=== PATIENT | male | born 1970 | race Caucasian/White ===

== ENCOUNTER 2017-01-22 16:30 | Emergency (ER) | payer OTHER ==
[~2017-01-22] VITALS: Ht 180.3 cm; Wt 90.7 kg
[~2017-01-22 16:30] MED LIST: ALEVE220 MG PO; ANAPROX DS550 MG PO; ATARAX25 MG PO; CLEOCIN HCL150 MG PO; CYCLOBENZAPRINE10 MG PO; CYCLOBENZAPRINE5 M3 PO; FLEXERIL5 MG PO; HYDROCODONE BIT1 T11 PO; IBU800 MG PO; MOTRIN800 MG PO; Motrin,Rufen800 MG PO; NAPROSYN500 MG PO; NKHM; NORCO 325 MG-51 TAB PO; NORFLEX100 MG PO; PEN-V500 MG PO; PEPCID20 MG PO; PERIDEX 480 ML480 ML PO; PREDNICOT10 MG PO; PREDNISONE50 MG PO; SILVADENE1% TP; TRAMADOL HCL50 MG PO; ULTRAM50 MG PO; ZITHROMAX Z PA250 MG PO
[2017-01-22] MEDS ORDERED: PREDNISONE10 MG PO (18:33)
[2017-01-22] MEDS ORDERED: ROBAXIN-750750 MG PO (18:33)
== END 2017-01-22 22:01 | disposition home or self-care (01) ==
LOC: ED 16:30
DX: S33.5XXA Sprain of ligaments of lumbar spine, initial encounter (principal); X50.9XXA Other and unspecified overexertion or strenuous movements or postures, initial encounter; Y93.89 Activity, other specified; Y92.9 Unspecified place or not applicable; Y99.9 Unspecified external cause status

== ENCOUNTER 2017-01-25 20:19 | Emergency (ER) | payer OTHER ==
[~2017-01-25] VITALS: Ht 180.3 cm; Wt 90.7 kg
[~2017-01-25 20:19] MED LIST changes: +PREDNISONE10 MG PO; +ROBAXIN-750750 MG PO
== END 2017-01-25 20:48 | disposition home or self-care (01) ==
LOC: ED 20:19
DX: S39.013A Strain of muscle, fascia and tendon of pelvis, initial encounter (principal); S39.012A Strain of muscle, fascia and tendon of lower back, initial encounter; R03.0 Elevated blood-pressure reading, without diagnosis of hypertension; X50.9XXA Other and unspecified overexertion or strenuous movements or postures, initial encounter; Y93.89 Activity, other specified; Y92.9 Unspecified place or not applicable; Y99.9 Unspecified external cause status

== ENCOUNTER 2017-12-12 09:15 | Emergency (ER) | payer OTHER ==
[~2017-12-12] VITALS: Ht 180.3 cm; Wt 86.2 kg
[2017-12-12] MEDS ORDERED: CHLORZOXAZONE500 M2 PO (09:21)
[2017-12-12] MEDS ORDERED: NAPROSYN500 MG PO (09:21)
== END 2017-12-12 11:01 | disposition home or self-care (01) ==
LOC: ED 09:15
DX: M54.42 Lumbago with sciatica, left side (principal); M54.41 Lumbago with sciatica, right side; R03.0 Elevated blood-pressure reading, without diagnosis of hypertension; F10.10 Alcohol abuse, uncomplicated; Z79.899 Other long term (current) drug therapy

== ENCOUNTER → 2019-04-11 | Outpatient (CLI) | payer OTHER ==
[~2019-04-11] MED LIST changes: +CHLORZOXAZONE500 M2 PO
--- NOTE | ~2019-04-11 | PF ---
[place], [place] PULMONARY FUNCTION TEST NAME: JEFRY GLORIA UNIT #: [id number] ROOM: DOCTOR: TIFFANIE HAIR MD,ANASTASIA BIRTHDATE: [birth year] DOS: 04/11/2019 ORDERED BY: Elliot Loving. HISTORY: The patient recorded as 48-year-old male, height 71 inches, weight 198 pounds, BMI of 27.6. Symptoms reported for shortness of breath with exertion, nonproductive cough and wheezing. Tobacco use was known as 20 years of cigars use, which has been discontinued one year ago. SPIROMETRY: The FVC 4.67 liters, 89% predicted value. The FEV1 3.62 liters as 87% predicted value. Ratio of FEV1/FVC 78% post-bronchodilators. There were no significant changes noted for this patient. Flow volume loop was normal. LUNG VOLUME: Thoracic gas volume recorded 77%, residual volume 92%, total lung capacity 90%. Lung diffusion were noted normal. The patient's airway resistance, passive conductance noted as abnormal, partial improvement post-bronchodilator. FINAL IMPRESSION: Possible consideration of mild obstructive lung disease can be excluded. Clinical correlation to be advised. ANASTASIA MORENO MD CM:PFREPORT:PULMONARY FUNCTION TEST [id number] ANASTASIA HAIR MD
== END | disposition home or self-care (01) ==
LOC: RAD 08:07
DX: M47.816 Spondylosis without myelopathy or radiculopathy, lumbar region (principal); M54.42 Lumbago with sciatica, left side; R06.2 Wheezing

== ENCOUNTER 2020-03-12 11:04 | Inpatient (IN) | payer OTHER ==
[~2020-03-12] VITALS: Ht 180.3 cm; Wt 88.5 kg
[2020-03-12 11:09] VITALS: BP 140/94
[2020-03-12 11:45] LABS: BASO # 0.1 10*3/uL (0.0-0.1); BASO % 0.2 % (0.0-1.0); EOS % 0.1 % (1.0-4.0); HEMATOCRIT 44.8 % (42.0-52.0); LYMPH # 1.4 10*3/uL (1.3-4.4); LYMPH % 6.9 % (27.0-41.0); MEAN CELL VOLUME 87.8 fl (80.0-94.0); MEAN CORPUSCULAR HGB 28.6 pg (27.0-31.0); MEAN CORPUSCULAR HGB CONC 32.6 g/dl (33.0-37.0); MEAN PLATELET VOLUME 9.3 fl (9.6-12.3); MONO # 1.5 10*3/uL (0.1-1.0); MONO % 7.1 % (3.0-9.0); NEUT # 17.5 10*3/uL (2.3-7.9); NEUT % 85.2 % (47.0-73.0); PLATELET COUNT AUTOMATED 246 10*3/uL (130-400); RED CELL DISTRI WIDTH 13.2 % (0-14.5); WHITE BLOOD COUNT 20.6 10*3/uL (4.8-10.8)
[2020-03-12 11:59] LABS: ALBUMIN 3.8 gm/dl (3.1-4.5); ALKALINE PHOSPHATASE 75 U/L (45-117); BUN 10 mg/dl (7-24); CHLORIDE 105 mmol/L (98-107); CREATININE 1.07 mg/dL (0.70-1.30); LIPASE 52 U/L (73-393); POTASSIUM 3.8 mmol/L (3.5-5.1); SGOT/AST 17 IU/L (3-35); SGPT/ALT 18 U/L (12-78); SODIUM 138 mmol/L (136-145); TOTAL PROTEIN 7.5 gm/dL (6.4-8.2)
--- NOTE | 2020-03-12 12:44 | NUR ---
pt unable to urinate at this time.
[2020-03-12 13:28] LABS: CLARITY CLEAR (CLEAR); COLOR YELLOW (YELLOW)
[2020-03-12 13:30] LABS: BACTERIA 1+; BILIRUBIN NEGATIVE; BLOOD NEGATIVE (NEGATIVE); GLUCOSE NEGATIVE; KETONE TRACE; LEUKO ESTERASE TRACE (NEGATIVE); MUCOUS 2+; NITRITE NEGATIVE (NEGATIVE); PH 6.5 (4.5-8.0); RBC 0-2 rbc/hpf (0-2)
--- NOTE | 2020-03-12 14:46 | NUR ---
PT RESTING IN BED. NO SIGNS OF ACUTE DISTRESS AT THIS TIME.
--- NOTE | 2020-03-12 15:10 | NUR ---
DR. TENORIO ADVISED ADMISSION. PT STATES THAT HE HAS SOME THINGS THAT HE NEEDS TO TAKE CARE OF FIRST AND THAT HE WILL COME BACK. PT WILL SIGN OUT AMA.
--- NOTE | 2020-03-12 18:54 | NUR ---
GAVE PT. DINNER BOX.
[2020-03-12 18:55] VITALS: BP 144/90
--- NOTE | 2020-03-12 19:15 | NUR ---
PATIENT REQUESTING TO LEAVE CLOTHING ON AT THIS TIME DUE TO BEING COLD. OFFERED PATIENT BLANKET AND WARM GOWN BUT STILL REQUESTED TO LEAVE CLOTHING ON UNTIL HE WENT TO THE FLOOR.
[2020-03-12 20:01] VITALS: BP 132/88
--- NOTE | 2020-03-12 20:01 | NUR ---
A 49, admitted to 5E, under the services of JOSE J Oneil DO with a diagnosis of DIVERTICULITIS. Chief complaint is ABDOMINAL PAIN. Patient arrived via bed from ER. Monitor applied. Initial assessment completed. Vital signs taken and recorded. JOSE J ONEIL DO notified of admission to the unit. Orders received. See assessment for past medical history, medications and allergies. Patient and/or family oriented to unit. [address] visitation policy reviewed. Clothing/patient valuable form completed. CAROLINE MARIA
--- NOTE | 2020-03-12 20:28 | NUR ---
PT MEDICATED WITH PRN NORCO FOR C/O PAIN RATED A 5/10. WILL MONITOR FOR EFFECTIVENESS.
--- NOTE | 2020-03-12 21:15 | NUR ---
PT REPORTS RELIEF OF PAIN AT THIS TIME. PRN NORCO EFFECTIVE.
[2020-03-13] VITALS: BP 128/91
[2020-03-13 06:44] LABS: BASO # 0.1 10*3/uL (0.0-0.1); BASO % 0.4 % (0.0-1.0); EOS # 0.1 10*3/uL (0.0-0.4); EOS % 0.4 % (1.0-4.0); HEMATOCRIT 40.6 % (42.0-52.0); LYMPH % 10.1 % (27.0-41.0); MEAN CELL VOLUME 88.5 fl (80.0-94.0); MEAN CORPUSCULAR HGB 29.2 pg (27.0-31.0); MEAN PLATELET VOLUME 9.9 fl (9.6-12.3); MONO # 1.3 10*3/uL (0.1-1.0); MONO % 6.8 % (3.0-9.0); NEUT # 15.7 10*3/uL (2.3-7.9); NEUT % 81.6 % (47.0-73.0); PLATELET COUNT AUTOMATED 202 10*3/uL (130-400); RED BLOOD COUNT 4.59 10*6/uL (4.50-5.90); RED CELL DISTRI WIDTH 13.3 % (0-14.5); WHITE BLOOD COUNT 19.3 10*3/uL (4.8-10.8)
[2020-03-13 07:25] LABS: CHLORIDE 109 mmol/L (98-107); POTASSIUM 3.8 mmol/L (3.5-5.1); SODIUM 137 mmol/L (136-145)
[2020-03-13 07:39] LABS: ACT PARTIAL THROMBO TIME 30.2 SECONDS (20.0-32.1); ALBUMIN 3.2 gm/dl (3.1-4.5); ALKALINE PHOSPHATASE 74 U/L (45-117); BUN 7 mg/dl (7-24); CHOLESTEROL 138 mg/dL (<200); CREATININE 0.89 mg/dL (0.70-1.30); FREE T4 1.19 ng/dl (0.76-1.46); HDL CHOLESTEROL 35 mg/dl (40-60); INTERNATIONAL NORM RATIO 1.1 (2.0-3.5); LDL CHOLESTEROL 90 mg/dL (9-159); SGOT/AST 14 IU/L (3-35); SGPT/ALT 15 U/L (12-78); THYROID STIM HORMONE (HS) 0.657 uIU/ml (0.358-4.75); TOTAL PROTEIN 6.9 gm/dL (6.4-8.2); TRIGLYCERIDES 65 mg/dl (<150); VLDL CHOLESTEROL 13 mg/dL (6-40)
[2020-03-13 08:00] VITALS: BP 139/88
[2020-03-13 08:24] LABS: VITAMIN D, 25-HYDROXY 31.6 ng/mL (30-100)
--- NOTE | 2020-03-13 08:30 | NUR ---
Tourist Cabin Keeper in to talk to patient. Patient states lives at home with his and 2 children. There are 0 steps in the home. Physician: Elliot Loving Pharmacy: [facility] Home health services: none Patient's level of ADLs: independent Patient has working utilities: yes DME: none Follow-up physician's appointment after d/c: will be made by the hospitalist nurse director upon discharge Does patient want to access PORTAL?: no Discharge plan discussed with patient. He lives at home with his family. He is independent in his ADLs and ambulation. He states he came to the ER yesterday morning about 11am and they wanted to admit him then but he had to go home and tend to his multiple fish tanks. He came back to the ER because that is what the ER doctor wanted him to do. He states he wants to be discharged today because he is not able to miss another day of work. 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 He said he can stay today because he has already missed work today. He states he feels much better. His stomach is sore in the middle when someone pushes on it. Discussed home health care services and he declines. CM will continue to follow for any discharge planning needs. When medically stable he will be discharged to home. He states he drove himself home as he drove himself here. GINA LAKHANI
[2020-03-13 12:00] VITALS: BP 141/95
[2020-03-13 16:00] VITALS: BP 144/90
--- NOTE | 2020-03-13 18:15 | NUR ---
TYLENOL 650 MG GIVEN FOR C/O PAIN,09/05.
--- NOTE | 2020-03-13 19:32 | NUR ---
24 HR chart check completed.
[2020-03-13 20:00] VITALS: BP 137/85
--- NOTE | 2020-03-13 21:42 | NUR ---
C/O HEADACHE AND WANTING TO GO TO SLEEP. NORCO GIVEN PER ORDER FOR PAIN RATED "6" SEE MAR. RESTORIL GIVEN PER ORDER FOR INSOMNIA.
--- NOTE | 2020-03-13 22:40 | NUR ---
NORCO EFFECTIVE FOR PAIN PER PATIENT. RESTORIL HELPING, PATIENT DROWSY.
[2020-03-14] VITALS: BP 108/72
--- NOTE | 2020-03-14 05:40 | NUR ---
PATIENT SLEEPING NO ACUTE DISTRESS NOTED.
[2020-03-14 06:00] LABS: BASO # 0.1 10*3/uL (0.0-0.1); BASO % 0.5 % (0.0-1.0); EOS # 0.3 10*3/uL (0.0-0.4); EOS % 2.2 % (1.0-4.0); HEMATOCRIT 41.4 % (42.0-52.0); LYMPH # 1.6 10*3/uL (1.3-4.4); LYMPH % 14.5 % (27.0-41.0); MEAN CELL VOLUME 88.1 fl (80.0-94.0); MEAN CORPUSCULAR HGB 29.4 pg (27.0-31.0); MEAN CORPUSCULAR HGB CONC 33.3 g/dl (33.0-37.0); MEAN PLATELET VOLUME 9.7 fl (9.6-12.3); MONO # 0.9 10*3/uL (0.1-1.0); MONO % 7.9 % (3.0-9.0); NEUT # 8.4 10*3/uL (2.3-7.9); NEUT % 74.5 % (47.0-73.0); PLATELET COUNT AUTOMATED 229 10*3/uL (130-400); RED CELL DISTRI WIDTH 13.2 % (0-14.5); WHITE BLOOD COUNT 11.3 10*3/uL (4.8-10.8)
[2020-03-14 06:11] LABS: BUN 9 mg/dl (7-24); CHLORIDE 106 mmol/L (98-107); CREATININE 0.95 mg/dL (0.70-1.30); POTASSIUM 3.6 mmol/L (3.5-5.1); SODIUM 138 mmol/L (136-145)
--- NOTE | 2020-03-14 08:15 | NUR ---
Shift chart check completed.
[2020-03-14] MEDS ORDERED: FLAGYL500 MG PO (08:46)
[2020-03-14] MEDS ORDERED: CIPRO500 MG PO (08:46)
--- NOTE | 2020-03-14 09:21 | NUR ---
Discharge instructions reviewed with patient/family. Patient receptive and verbalizes understanding. Follow-up care arranged. Written instructions given to patient/family. PATIENT AMBULATED OUT WITH JAMI SHANE
== END 2020-03-14 09:21 | disposition home or self-care (01) | DRG 720 ==
LOC: ED 11:04 → 5E 18:58 → EDHOLD 18:58 → 5E 19:42
PROVIDERS: Emergency Medicine; Family Medicine; Internal Medicine; ADMIT Internal Medicine; ATTEND Internal Medicine
DX: A41.9 Sepsis, unspecified organism (principal); K57.92 Diverticulitis of intestine, part unspecified, without perforation or abscess without bleeding; R00.0 Tachycardia, unspecified; M54.16 Radiculopathy, lumbar region; F12.10 Cannabis abuse, uncomplicated; I10 Essential (primary) hypertension; R73.9 Hyperglycemia, unspecified; M54.30 Sciatica, unspecified side; E83.39 Other disorders of phosphorus metabolism; E87.8 Other disorders of electrolyte and fluid balance, not elsewhere classified; D64.9 Anemia, unspecified; Z82.49 Family history of ischemic heart disease and other diseases of the circulatory system; Z79.899 Other long term (current) drug therapy

== ENCOUNTER 2022-02-08 14:30 | Emergency (ER) | payer OTHER ==
[~2022-02-08 14:30] MED LIST changes: +CIPRO500 MG PO; +FLAGYL500 MG PO
== END 2022-02-08 16:41 | disposition left against medical advice (07) ==
LOC: ED 14:30
DX: Z53.21 Procedure and treatment not carried out due to patient leaving prior to being seen by health care provider (principal)

== ENCOUNTER → 2022-03-12 | Outpatient (CLI) | payer OTHER | END | disposition home or self-care (01) | LOC: RAD 11:47 | PROVIDERS: ATTEND Orthopaedic Surgery | DX: M25.522 Pain in left elbow (principal); M77.8 Other enthesopathies, not elsewhere classified ==

== ENCOUNTER 2022-05-10 13:48 | Emergency (ER) | payer OTHER ==
[~2022-05-10] VITALS: Wt 88.5 kg
[2022-05-10] MEDS ORDERED: PREDNISONE20 M1 PO (14:50)
[2022-05-10] MEDS ORDERED: METHOCARBAMOL500 M1 PO (14:50)
== END 2022-05-10 16:21 | disposition home or self-care (01) ==
LOC: ED 13:48
DX: M54.32 Sciatica, left side (principal)

== ENCOUNTER 2022-05-14 19:44 | Emergency (ER) | payer OTHER ==
[~2022-05-14] VITALS: Ht 180.3 cm; Wt 88.9 kg
[~2022-05-14 19:44] MED LIST changes: +METHOCARBAMOL500 M1 PO; +PREDNISONE20 M1 PO
[2022-05-14] MEDS ORDERED: LISINOPRIL30 MG PO (19:57)
[2022-05-14] MEDS ORDERED: NAPROSYN500 MG PO (21:44)
[2022-05-14] MEDS ORDERED: MEDROL DOSEPAK4 MG PO (21:44)
== END 2022-05-14 22:51 | disposition home or self-care (01) ==
LOC: ED 19:44
DX: M54.32 Sciatica, left side (principal); M25.562 Pain in left knee; Z79.899 Other long term (current) drug therapy; Z90.89 Acquired absence of other organs; X50.1XXA Overexertion from prolonged static or awkward postures, initial encounter; Y93.89 Activity, other specified; Y92.89 Other specified places as the place of occurrence of the external cause; Y99.8 Other external cause status

== ENCOUNTER 2022-07-01 11:26 | Emergency (ER) | payer OTHER ==
[~2022-07-01 11:26] MED LIST changes: +LISINOPRIL30 MG PO; +MEDROL DOSEPAK4 MG PO
[2022-07-01] MEDS ORDERED: CYCLOBENZAPRINE10 MG PO ×2 (13:01)
[2022-07-01] MEDS ORDERED: PREDNISONE10 MG PO ×2 (13:01)
== END 2022-07-01 13:15 | disposition home or self-care (01) ==
LOC: ED 11:26
DX: S39.012A Strain of muscle, fascia and tendon of lower back, initial encounter (principal); F12.10 Cannabis abuse, uncomplicated; X50.0XXA Overexertion from strenuous movement or load, initial encounter; Y93.89 Activity, other specified; Y92.89 Other specified places as the place of occurrence of the external cause; Y99.8 Other external cause status

== ENCOUNTER → 2022-07-14 | Outpatient (CLI) | payer OTHER | END | disposition home or self-care (01) | LOC: RAD 09:14 | PROVIDERS: ATTEND Nurse Practitioner Family | DX: M54.42 Lumbago with sciatica, left side (principal) ==

== ENCOUNTER → 2022-07-15 | Outpatient (CLI) | payer OTHER | END | disposition home or self-care (01) | LOC: MRI 00:42 | PROVIDERS: ATTEND Orthopaedic Surgery | DX: S83.242A Other tear of medial meniscus, current injury, left knee, initial encounter (principal); D16.22 Benign neoplasm of long bones of left lower limb; M25.862 Other specified joint disorders, left knee; M25.462 Effusion, left knee; X58.XXXA Exposure to other specified factors, initial encounter; Y93.9 Activity, unspecified; Y92.89 Other specified places as the place of occurrence of the external cause; Y99.8 Other external cause status ==

== ENCOUNTER 2023-01-24 11:53 | Emergency (ER) | payer OTHER ==
[~2023-01-24] VITALS: Ht 180.3 cm; Wt 88.5 kg
[2023-01-24] MEDS ORDERED: PREDNISONE50 MG PO (12:15)
== END 2023-01-24 12:33 | disposition home or self-care (01) ==
LOC: ED 11:53
DX: M54.6 Pain in thoracic spine (principal); I10 Essential (primary) hypertension; Z87.442 Personal history of urinary calculi; F12.10 Cannabis abuse, uncomplicated

== ENCOUNTER 2023-11-15 16:46 | Emergency (ER) | payer OTHER ==
[~2023-11-15] VITALS: Ht 175.2 cm; Wt 88.5 kg
[2023-11-15] MEDS ORDERED: PREDNISONE50 MG PO (17:38)
[2023-11-15] MEDS ORDERED: Dexamethasone Sodium Phospha 20 MG/5 ML VIAL IM ONE (17:40)
[2023-11-15] MEDS ORDERED: Ketorolac Tromethamine 60 MG/2 ML VIAL IM ONE (17:40)
== END 2023-11-15 18:06 | disposition home or self-care (01) ==
LOC: ED 16:46
DX: M54.50 Low back pain, unspecified (principal); I10 Essential (primary) hypertension; Z87.442 Personal history of urinary calculi; F12.10 Cannabis abuse, uncomplicated; Z98.890 Other specified postprocedural states

== ENCOUNTER 2024-02-25 21:55 | Emergency (ER) | payer OTHER ==
[~2024-02-25] VITALS: Ht 180.3 cm; Wt 88.5 kg
[2024-02-25] MEDS ORDERED: Dexamethasone Sodium Phospha 20 MG/5 ML VIAL IM ONE (22:50)
[2024-02-25] MEDS ORDERED: Ketorolac Tromethamine 30 MG/ML VIAL IM ONE (22:50)
[2024-02-25] MEDS ORDERED: MEDROL DOSEPAK4 MG PO (22:51)
== END 2024-02-25 23:10 | disposition home or self-care (01) ==
LOC: ED 21:55
DX: M62.830 Muscle spasm of back (principal); M79.604 Pain in right leg; I10 Essential (primary) hypertension; F12.10 Cannabis abuse, uncomplicated; Z87.442 Personal history of urinary calculi; Z98.890 Other specified postprocedural states

== ENCOUNTER → 2024-04-28 | Outpatient (CLI) | payer OTHER | END | disposition home or self-care (01) | LOC: MRI 08:46 | PROVIDERS: ATTEND Orthopaedic Surgery | DX: M51.370 Other intervertebral disc degeneration, lumbosacral region with discogenic back pain only (principal); M47.26 Other spondylosis with radiculopathy, lumbar region; M48.061 Spinal stenosis, lumbar region without neurogenic claudication ==

== ENCOUNTER 2024-05-09 12:49 | Emergency (ER) | payer SELFPAY ==
[~2024-05-09] VITALS: Wt 88.5 kg
[2024-05-09] MEDS ORDERED: PREDNISONE50 MG PO (13:34)
[2024-05-09] MEDS ORDERED: CYCLOBENZAPRINE5 M3 PO (13:34)
[2024-05-09] MEDS ORDERED: methylPREDNISolone sod succ 125 MG VIAL IM ONE (13:35)
[2024-05-09] MEDS ORDERED: Ketorolac Tromethamine 30 MG/ML VIAL IM ONE (13:35)
== END 2024-05-09 13:44 | disposition home or self-care (01) ==
LOC: ED 12:49
DX: M54.50 Low back pain, unspecified (principal); I10 Essential (primary) hypertension; F12.10 Cannabis abuse, uncomplicated; Z87.442 Personal history of urinary calculi; Z90.89 Acquired absence of other organs

== ENCOUNTER → 2024-12-13 | Outpatient (CLI) | payer OTHER | END | disposition home or self-care (01) | LOC: RAD 11:30 | PROVIDERS: ATTEND Nurse Practitioner Family | DX: M19.041 Primary osteoarthritis, right hand (principal); M79.89 Other specified soft tissue disorders; M79.641 Pain in right hand ==

== ENCOUNTER → 2024-12-14 | Outpatient (CLI) | payer OTHER ==
[2024-12-14 10:05] LABS: BASO # 0.1 10*3/uL (0.0-0.1); BASO % 1.2 % (0.0-1.0); EOS # 0.3 10*3/uL (0.0-0.4); EOS % 4.5 % (1.0-4.0); HEMATOCRIT 45.7 % (42.0-52.0); MEAN CELL VOLUME 86.9 fl (80.0-94.0); MEAN CORPUSCULAR HGB 29.5 pg (27.0-31.0); MEAN CORPUSCULAR HGB CONC 33.9 g/dl (33.0-37.0); MEAN PLATELET VOLUME 9.3 fl (9.6-12.3); MONO # 0.5 10*3/uL (0.1-1.0); MONO % 8.8 % (3.0-9.0); NEUT # 2.8 10*3/uL (2.3-7.9); NEUT % 46.6 % (47.0-73.0); PLATELET COUNT AUTOMATED 257 10*3/uL (130-400); RED BLOOD COUNT 5.26 10*6/uL (4.50-5.90); RED CELL DISTRI WIDTH 13.3 % (0-14.5)
[2024-12-14 10:48] LABS: VITAMIN D, 25-HYDROXY 37.1 ng/mL (30-100)
[2024-12-14 10:49] LABS: ALKALINE PHOSPHATASE 70 U/L (46-116); BUN 12 mg/dl (9-23); CHLORIDE 103 mmol/L (98-107); CHOLESTEROL 203 mg/dL (<200); LDL CHOLESTEROL 144 mg/dL (9-159); POTASSIUM 4.2 mmol/L (3.4-5.1); SGPT/ALT 18 U/L (5-49); TRIGLYCERIDES 117 mg/dl (<150)
== END | disposition home or self-care (01) ==
LOC: LAB 01:05
PROVIDERS: ATTEND Nurse Practitioner Family
DX: Z13.0 Encounter for screening for diseases of the blood and blood-forming organs and certain disorders involving the immune mechanism (principal); Z13.220 Encounter for screening for lipoid disorders; Z13.29 Encounter for screening for other suspected endocrine disorder; Z12.5 Encounter for screening for malignant neoplasm of prostate

== ENCOUNTER → 2025-03-22 | Outpatient (CLI) | payer OTHER ==
[2025-03-24 08:08] LABS: TB1 Ag VALUE 0.04 IU/mL (.)
== END | disposition home or self-care (01) ==
LOC: LAB 15:16
PROVIDERS: ATTEND Nurse Practitioner Family
DX: Z51.11 Encounter for antineoplastic chemotherapy (principal)